=== PATIENT | female | born 1970 ===

== ENCOUNTER → 2021-08-31 | Outpatient (CLI) | payer BC ==
--- NOTE | 2021-09-01 07:20 | XR ---
EXAMINATION TYPE: XR wrist complete RT DATE OF EXAM: 08/31/2021 CLINICAL HISTORY: pain TECHNIQUE: Frontal, lateral and oblique images of the right wrist are obtained. COMPARISON: None. FINDINGS: There is no acute fracture/dislocation evident. The joint spaces appear within normal limits. The o verlying soft tissue appears unremarkable. IMPRESSION: There is no acute fracture or dislocation seen. ICD 10 NO FRACTURE, INITIAL EVALUATION
--- NOTE | 2021-09-12 10:10 | MM ---
Reason for exam: screening (asymptomatic). Last mammogram was performed 1 year and 7 months ago. History: Breast lifts of both breasts, January 2019. Benign stereotactic core biopsy of the left breast, 2006. Taking hormonal contraceptives. Physical Findings: A clinical breast exam by your physician is recommended on an annual basis and results should be correlated with mammographic findings. MG Screening Mammo w CAD Bilateral CC and MLO view(s) were taken. Prior study comparison: February 03, 2020, mammogram, performed at [facility]. February 28, 2018, mammogram, performed at [facility]. The breast tissue is heterogeneously dense. This may lower the sensitivity of mammography. Finding: There are new indeterminate heterogeneous, grouped/clustered and regional calcifications in the right breast. Previous mammotome biopsy in the left breast. There is a chronic nodularity in the left breast. ASSESSMENT: Incomplete: need additional imaging evaluation, BI-RAD 0 RECOMMENDATION: Special view mammogram of the right breast. [facility] will attempt to contact patient to return for supplemental views.
== END | disposition home or self-care (01) ==
LOC: RADMAMWWP 16:35
PROVIDERS: ATTEND Family Medicine
DX: Z12.31 Encounter for screening mammogram for malignant neoplasm of breast (principal); M25.531 Pain in right wrist; G56.01 Carpal tunnel syndrome, right upper limb
CPT/HCPCS: 77067

== ENCOUNTER → 2022-05-08 | Outpatient (CLI) | payer BC ==
--- NOTE | 2022-05-08 09:42 | CA ---
Transthoracic Echo Report Name: Wanda Rangel Age: 51 Gender: F : 1970 Exam Date: 05/08/2022 08:34 Exam Location: [facility] Ht (in): 65 Wt (lb): 246 Ordering Physician: Boyd Proctor DO Attending/Referring Phys: Boyd Proctor DO Ordnance Keeper Hayley Frausto, [id number] Procedure CPT: Indications: R60.9 ABNORMALITIES OF BREATHING Cardiac Hx: Technical Quality: Contrast 1: Total Dose (mL): Contrast 2: Total Dose (mL): MEASUREMENTS (Male / Female) Normal Values 2D ECHO LV Diastolic Diameter PLAX 4.2 cm 4.2 - 5.9 / 3.9 - 5.3 cm LV Systolic Diameter PLAX 3.1 cm IVS Diastolic Thickness 1.3 cm 0.6 - 1.0 / 0.6 - 0.9 cm LVPW Diastolic Thickness 1.6 cm 0.6 - 1.0 / 0.6 - 0.9 cm LV Relative Wall Thickness 0.7 RV Internal Dim ED PLAX 3.0 cm LA Volume 63.1 cm??? 18 - 58 / 22 - 52 cm??? M-MODE Aortic Root Diameter MM 3.4 cm LA Systolic Diameter MM 4.1 cm LA Ao Ratio MM 1.2 MV E Point Septal Separation 1.0 cm AV Cusp Separation MM 2.4 cm DOPPLER MV Area PHT 2.8 cm??? Mitral E Point Velocity 33.0 cm/s Mitral A Point Velocity 64.8 cm/s Mitral E to A Ratio 0.5 MV Deceleration Time 272.4 ms MV E' Velocity 4.7 cm/s Mitral E to MV E' Ratio 7.1 FINDINGS Left Ventricle Left ventricular ejection fraction is estimated at 50 %. Mildly increased left ventricular wall thickness. Right Ventricle Normal right ventricular size and function. Right Atrium Normal right atrial size. Left Atrium Moderately increased left atrial volume. Mitral Valve Structurally normal mitral valve. Mild mitral regurgitation. Aortic Valve Trileaflet aortic valve. Tricuspid Valve Structurally normal tricuspid valve. Mild tricuspid regurgitation. Pulmonic Valve Structurally normal pulmonic valve. Pericardium Normal pericardium. Aorta Normal size aortic root and proximal ascending aorta. CONCLUSIONS Low-normal left ventricular systolic function was EF of 50% Previewed by: Dr. Zachariah Adair MD (Electronically Signed) Final Date: 08 May 2022 09:41
== END | disposition home or self-care (01) ==
LOC: RADECHMAIN 08:26
PROVIDERS: ATTEND Family Medicine
DX: R06.9 Unspecified abnormalities of breathing (principal)
CPT/HCPCS: 93306

== ENCOUNTER → 2023-04-17 | Outpatient (CLI) | payer BC ==
--- NOTE | 2023-04-17 07:50 | US ---
EXAMINATION TYPE: US abdomen complete DATE OF EXAM: 04/17/2023 COMPARISON: NONE CLINICAL INDICATION: Female, 52 years old with history of R10.84 GENERALIZED ABDOMINAL PAIN; elevated liver enzymes TECHNIQUE: Multiple sonographic images of the abdomen are obtained. FINDINGS: EXAM MEASUREMENTS: Liver Length: 14.2 cm Gallbladder Wall: . cm CBD: 0.7 cm Spleen: 9.2 cm Right Kidney: 13.1x4.4x5.8 cm Left Kidney: 12.1x4.5x3.9 cm MACHINE GUIDE BASE WINDER NOTES: Pancreas: Tail obscured by overlying bowel gas Liver: increased echogenicity Gallbladder: Surgically absent Evidence for sonographic Alcazar's sign: No CBD: enlarged Spleen: wnl Right Kidney: wnl Left Kidney: wnl Upper IVC: wnl Abd Aorta: wnl exam limited by large body habitus, bowel The intrahepatic portion of the IVC and proximal abdominal aorta are within normal limits. There is no evidence of cholelithiasis. Common bile duct is unremarkable. The visualized portions of the collado creas are homogenous. The spleen is unremarkable. Kidneys are symmetric and free of hydronephrosis. No renal lesions are seen. IMPRESSION: Hepatic steatosis.
== END | disposition home or self-care (01) ==
LOC: RADUSWWP 07:06
PROVIDERS: ATTEND Family Medicine
DX: K76.0 Fatty (change of) liver, not elsewhere classified (principal); R10.84 Generalized abdominal pain
CPT/HCPCS: 76700

== ENCOUNTER → 2024-10-27 | Outpatient (CLI) | payer BC ==
--- NOTE | 2024-10-28 07:41 | MM ---
Reason for Exam: Screening (asymptomatic). Last mammogram was performed 3 year(s) and 1 month(s) ago. Patient History: Menarche at age 15. First Full-Term at age 23. Perimenopausal. Currently using Hormonal Contraceptives. 2007, Benign Stereotactic Core Biopsy on the left side. Risk Values: Sindhu 5 year model risk: 1.1%. NCI Lifetime model risk: 8.2%. Prior Study Comparison: 02/03/2020 Screening Mammogram, [facility]. 08/31/2021 Bilateral Screening Mammogram, [facility]. 10/05/2021 Right Diagnostic Mammogram, [facility]. Tissue Density: There are scattered areas of fibroglandular density. Findings: Biopsy clip left breast anteriorly is redemonstrated. Benign-appearing round calcifications bilaterally are redemonstrated. More numerous Benign-appearing dystrophic and linear calcifications in the right breast are noted. A 7 mm focal mass in the left breast anteriorly is diminished in size from prior mammograms. Benign appearing subcentimeter left axillary lymph nodes are redemonstrated. There is no suspicious new group of microcalcifications or new suspicious mass in either breast. Overall Assessment: Benign, BI-RAD 2 Management: Screening Mammogram of both breasts in 1 year. . Patient should continue monthly self-breast exams. A clinical breast exam by your physician is recommended on an annual basis. This exam should not preclude additional follow-up of suspicious palpable abnormalities. Note on Sindhu scores and lifetime risk: 1. A Sindhu score greater than 3% is considered moderate risk. If this is the case, consider specialist referral to assess eligibility for a risk reducing agent. 2. If overall lifetime risk for the development of breast cancer is 20% or higher, the patient may qualify for future screening with alternating mammogram and breast MRI. [facility], , 10/28/2024 7:39 AM. Electronically signed and approved by: Chico Naik M.D.
== END | disposition home or self-care (01) ==
LOC: RADMAMWWP 16:02
PROVIDERS: ATTEND Family Medicine
DX: Z12.31 Encounter for screening mammogram for malignant neoplasm of breast (principal); R92.323 Mammographic fibroglandular density, bilateral breasts; R92.1 Mammographic calcification found on diagnostic imaging of breast; Z92.0 Personal history of contraception
CPT/HCPCS: 77067